=== PATIENT | female | born 1995 | race African-American/Black ===

== ENCOUNTER 2021-07-26 10:35 | Emergency (ER) | payer OTHER ==
[~2021-07-26] VITALS: Ht 165.1 cm; Wt 56.7 kg
[2021-07-26 10:39] VITALS: BP 123/65
--- NOTE | 2021-07-26 10:51 | NUR ---
covid swab collected and sent to lab.
--- NOTE | 2021-07-26 11:18 | NUR ---
patient left accompanied by [employer] in no distress.
== END 2021-07-26 11:18 ==
LOC: ER 10:39
DX: Z20.822 Contact with and (suspected) exposure to COVID-19 (principal)
CPT/HCPCS: 87426; 99283; C9803